=== PATIENT | male | born 2000 | race Caucasian/White ===

== ENCOUNTER 2023-07-31 23:11 | Emergency (ER) | payer SELFPAY ==
[~2023-07-31] VITALS: Ht 165.1 cm; Wt 70.0 kg
[2023-07-31 23:12] VITALS: O2SAT 98
[2023-08-01 00:06] VITALS: BP 122/79; PULSE 101; RESP 18; TEMP 98.3
== END 2023-08-01 00:10 | disposition home or self-care (01) ==
LOC: ER 23:11
DX: S50.811A Abrasion of right forearm, initial encounter (principal); X58.XXXA Exposure to other specified factors, initial encounter; Y93.89 Activity, other specified; Y92.89 Other specified places as the place of occurrence of the external cause; Y99.8 Other external cause status
CPT/HCPCS: 99283